=== PATIENT | female | born 1990 | race Caucasian/White ===

== ENCOUNTER → 2018-09-12 23:05 | Outpatient (CLI) | payer OTHER, SELFPAY ==
[2018-09-12 18:15] VITALS: BMI 18.7
[2018-09-12 23:34] LABS: ALB/GLOB Ratio 1.1 RATIO (0.9-2.4); AST(SGOT) 19 U/L (15-37); Alanine Aminotransfer ALT/SGPT 21 U/L (13-56); Albumin, Serum 4.1 g/dL (3.2-5.0); Alkaline Phosphatase 45 U/L (45-117); Anion Gap 6 (5-15); BUN 22 mg/dL (7-18); BUN/Creat Ratio 25.1 RATIO (10-20); Calcium,Total 9.1 mg/dL (8.5-10.1); Chloride 105 mmol/L (98-107); Creatinine, Serum 0.88 mg/dL (0.55-1.02); EST Glomerular Filtration Rate 82 mL/min (>60); Est Glom Filt Rate - Afr Amer 100 mL/min (>60); Globulin 3.7 g/dL (2.2-4.2); Glucose 80 mg/dL (74-106); Potassium 3.6 mmol/L (3.5-5.1); Protein, Total 7.8 g/dL (6.4-8.2); Sodium Level 136 mmol/L (136-145); Thyroid Stim Hormone (TSH) 5.73 uIU/mL (0.358-3.74)
--- OUTSIDE RECORDS SUMMARY | 2018-10-25 17:42 | XMS RPT_ITS ---
:1990 Author Organization [facility] Care Team Providers Name Role Phone Soheila Rubio DRY STARCH SUPERVISOR-C Attending Unavailable Soheila Rubio DRY STARCH SUPERVISOR-C Referring Unavailable PROBLEMS PROBLEMS DATE TYPE CONDITION / CODE ATTENDING STATUS SOURCE 09/13/2018 Unknown G47.00 - Rubio, Active [place] Insomnia, Soheila DRY STARCH SUPERVISOR-C [facility] unspecified / Hospital G47.00(ICD-10) Repository 09/13/2018 Unknown E03.9 - Rubio, Active [place] Hypothyroidism, Soheila DRY STARCH SUPERVISOR-C [facility] unspecified / Hospital E03.9(ICD-10) Repository PROCEDURES PROCEDURES No Procedure Records FoundRESULTS RESULTS OFFICE VISIT Observed: 09/13/2018 Status: F Source: DEANNA 12:29 PM [facility] REPOSITORY [facility] [address] [place] [address] OFFICE VISIT Date of Service: 09/12/18 MR#: [id number] Acct: [id number] Name: MARIVEL PATEL Rep #: [id number] : 1990 Provider: NINA Rubio Age/Sex: 27/F Location: [facility] Status: Signed Intake Vital Signs09/12/18 Height 5 ft 3.4 in 09/12/18 Weight: 107 lb Intake Visit Reasons: RX REFILLS Allergies azithromycin [From Zithromax] Adverse Reaction (Intermediate, Unverified 09/12/18 16:47) vomiting, diarrhea penicillin G [From Bicillin C-R] Adverse Reaction (Intermediate, Unverified 09/12/18 16:47) vomiting, diarrhea penicillin G procaine [From Bicillin C-R] Adverse Reaction (Intermediate, Unverified 09/12/18 16:47) vomiting, diarrhea Medications meloxicam 7.5 mg tablet 7.5 mg PO DAILY #30 tab 09/12/18 [Rx Confirmed 09/12/18] norgestimate 0.25 mg-ethinyl estradiol 35 mcg tablet 1 tab PO DAILY 09/12/18 [History Confirmed 09/12/18] topiramate 50 mg tablet 50 mg PO DAILY #30 tab 09/12/18 [Rx Confirmed 09/12/18] zolpidem 10 mg tablet 10 mg PO QHS PRN #30 tab 09/12/18 [Rx Confirmed 09/12/18] thyroid (pork) 30 mg tablet 30 mg PO DAILY #30 tab 09/13/18 [Rx Confirmed 09/13/18] PFSH Medical History ADD (attention deficit disorder) (Acute) Fibromyalgia (Acute) IBS (irritable bowel syndrome) (Acute) Insomnia (Acute) Migraine (Acute) Narcolepsy (Acute) Family History Other Bone cancer Fibroids High cholesterol Hypertension Hypoglycemia Lung cancer HPI HPI (General) HPI HPI: MARIVEL PATEL, is a 27 F who presents to the office today for medication refills She has stopped her levothyroxine and the leg cramps stopped too . also stopped her K pills . suggested retesting her thyroid and recheck her electrolytes also also still needs her sleeping pills but getting better down to 1/2 pill. ROS Const Constitutional: No anorexia, body ache, chills, excessive sweating, fatigue, fever(s), frequent falls, headache(s), decreased energy, malaise, night sweats, snoring, weakness, weight change, sleep problems, abnormal sleep pattern, change in appetite or other Eyes Eyes: No blurry vision, change in vision, double vision, discharge, dry eyes, bulging eyes, floaters, visual disturbances, eye pain, light sensitivity, spots in vision, tunnel vision or other ENT ENT: No headache(s), abnormal hearing, ear pain, ear discharge, ear pressure, hearing loss, tinnitus, dizziness/vertigo, balance problems, nosebleed/epistaxis, nasal congestion, nasal obstruction, nose pain, sinus pressure, sinus pain, nasal discharge, post nasal drip, facial pain, dental pain, dry mouth, difficulty swallowing, bad breath, hoarseness, lip swelling, mouth lesions, mouth pain, neck pain, sore throat, tongue swelling, throat swelling or other Resp Respiratory: No snoring, cough, change in phlegm color, chest congestion, excessive phlegm production, hemoptysis, pain on inspiration, shortness of breath, pain with cough, stridor, wheezing or other Cardio Cardiology: No excessive sweating, chest pain at rest, chest pain with exertion, leg pain with exertion, shortness of breath, dyspnea on exertion, generalized swelling, irregular heart rhythm, lightheadedness, orthopnea, radiating jaw, neck or arm pain, fast heart rate, slow heart rate, palpitations or other Gastro GI: No other, No Difficulty Swallowing, No abdominal pain, No belching, No bloating, No change in bowel habits, No change in stool character, No coffee ground emesis, No constipation, No cramping, No diarrhea, No heartburn, No feeling full early, No excessive flatus, No incontinent of stools, No Vomiting blood/hematemesis, No Blood in stool, No loose stools, No Black,tarry stools, No nausea/dyspepsia, No pain with swallowing, No vomiting, No hemorrhoids, No rectal pain Genitourinary: No urinary frequency, difficulty urinating, burning urination, painful urination, urinary urgency or blood in urine Musc Musculoskeletal: No neck pain, abnormal walking, joint pain, back pain, deformity, joint swelling, limited range of motion, loss of height, muscle cramps, muscle weakness, decreased muscle mass, body aches, numbness, radiating pain into limb, stiffness, tingling or other Skin Skin: No acne, hair loss, change in hair, nail changes, boil, change in skin color, dry skin, redness, excessive hair growth, yellowing of the skin, lesions, itching, rash, skin pain, skin ulcer, sores, skin swelling, wounds or other Breast Breast: No other Neuro Neurology: No frequent falls, headache(s), weakness, visual disturbances, abnormal hearing, abnormal walking, numbness, tingling, abnormal movements, abnormal speech, behavioral changes, confusion, unsteady gait/balance, dizziness, lack of coordination, loss of vision, memory loss, restless legs, fainting, tremor(s) or other Psych Psychiatric: No abnormal sleep pattern, No change in appetite, No behavioral changes, No confusion, No memory loss, No lack of enjoyment, No anxiety, No depression, No difficulty concentrating, No hopelessness, No irritability, No mood swings, No panic attacks, No paranoia, No Thoughts of harming yourself/Others, No hallucinations, No other Endo Endo: No excessive sweating, No fatigue, No other Aller/Imm Allergy/Immunologic: No lip swelling, tongue swelling, throat swelling, wheezing or itchy eyes Exam Const Constitutional: Yes cooperative, Yes healthy appearing Orientation: Yes alert, awake and oriented x3 HENMT Head: Yes normocephalic Ear: Yes hearing grossly normal bilaterally Neck Neck: normal visual inspection Thyroid: thyroid normal Eyes General: Yes appearance normal, both eyes and all related structures Chest Chest palpation AND inspection: Yes normal inspection of the chest Resp Effort AND Inspection: No stridor Auscultation: Yes clear to auscultation bilaterally Cardio Palpitation: Yes normal PMI Rate: Yes regular rate Rhythm: Yes regular rhythm GI Inspection: Yes normal to inspection Auscultation: Yes normal bowel sounds Rectal Exam: No hemorrhoids Musc Cervical Spine: Yes cervical ROM normal Thoracic/Lumbar Spine: Yes thoracic and lumbar spine normal to inspection Skin General: no rashes or lesions noted Lesions: Yes no lesions Extrem General: Yes normal to inspection Neuro General: Yes alert and oriented x3 Motor: No weakness Psych Appearance: Positive grossly normal Mood: Positive congruent mood Affect: Positive normal affect Assessment AND Plan Problems 1. Primary insomnia F51.01 2. Acquired hypothyroidism E03.9 Patient Instructions Will recheck labs and thyroid Will call with the results follow up as needed suggested trying [place] instead of the levothyroxine for less side effects Orders Orders: Medications New: Discontinued: potassium chloride ER (K-Tab) Discontinued Reason: Pt no longer takin10 mEq PO DAILY g Coding Level of Care Code Off vis,est,level 3 Diagnoses Primary insomnia F51.01 Insomnia type: primary Acquired hypothyroidism E03.9 Hypothyroidism type: acquired 09/13/18 1229 <Electronically signed by Soheila SALDANA> Date Soheila SALDANA CC: COMPREHENSIVE METABOLIC Collected: 09/12/2018 Status: F Source: DEANNA NETTLES 7:05 PM [facility] REPOSITORY TYPE CODE TESTS RESULT OUT OF RANGE REFERENCE UNITS LAB L501.0100 74-106 mg/dL Normal GLU 80 Result Comment: Please note revised GLUCOSE reference range effective 2017. LAB L501.1000 7-18 mg/dL High BUN 22 LAB L501.1100 0.55-1.02 mg/dL Normal CREAT,SERUM 0.88 Result Comment: The validity of the calculated GFR AND GFRAA in patients over 70 years has not been determined. Clinical correlation is essential. LAB L501.1110 >60 mL/min Normal EST GFR 82 Result Comment: Non- GFR Calc LAB L501.1115 >60 mL/min Normal EST GFR - AA 100 Result Comment: GFR Calc LAB L501.1300 10-20 RATIO High BUN/CRE 25.1 LAB L501.1500 6.4-8.2 g/dL T Normal PROT 7.8 LAB L501.1800 3.2-5.0 g/dL Normal ALB 4.1 LAB L501.1950 2.2-4.2 g/dL Normal GLOB 3.7 LAB L501.2000 0.9-2.4 RATIO Normal A/G 1.1 LAB L501.2200 8.5-10.1 mg/dL CA Normal 9.1 LAB L501.4100 15-37 U/L Normal AST 19 LAB L501.4305 45-117 U/L Normal ALK P 45 LAB L501.4405 13-56 U/L Normal ALT 21 LAB L501.4600 0.20-1.00 mg/dL T Normal BILI 0.20 LAB L501.5300 136-145 mmol/L NA Normal 136 LAB L501.5600 3.5-5.1 mmol/L K Normal 3.6 LAB L501.5900 98-107 mmol/L CL Normal 105 LAB L501.6100 21.0-32.0 mmol/L Normal CO2 25.0 LAB L501.6200 5-15 Normal GAP 6 Performed By: #### L500.4050, L501.9520 #### [facility] [address] [place], [place], [address] THYROID STIM HORMONE Collected: 09/12/2018 Status: F Source: DEANNA (TSH) 7:05 PM [facility] REPOSITORY TYPE CODE TESTS RESULT OUT OF RANGE REFERENCE UNITS LAB L501.9520 0.358-3.74 uIU/mL High TSH 5.73 Performed By: #### L500.4050, L501.9520 #### [facility] [address] [place], [address] ALLERGIES ALLERGIES DATE TYPE / CODE NAME / CODE REACTION SEVERITY SOURCE 09/12/2018 Drug penicillin G vomiting, [place] Allergy/416 procaine/[id number] diarrhea Community [address]17[facility] [address] Rep[facility] 09/12/2018 Drug azithromycin/F006 vomiting, MO [place]anna Allergy/416 911436(RXNORM) diarrhea Community 155609([facility] ED CT) Repository 09/12/2018 Drug penicillin vomiting, [place]anna Allergy/416 G/[id number](RXNO diarrhea Community 608116([facility] ED CT) Repository ENCOUNTERS ENCOUNTERS ADMIT/DISCHARGE ACCOUNT ADMITTING ENCOUNTER LOCATION SOURCE NUMBER CLASS 09/12/2018 [id number] Ambulatory [address] ing:LABSPEC Repository PAYERS PAYERS ENCOUNTER GUARANTOR PAYER SUBSCRIBER SOURCE 09/12/2018 MARIVEL Primary MARIVEL [id number] Insurance:MEDICAL BAILEYDOB: [facility] [id number] Number: Repository [id number]: [phone] [id number] [phone] () Date:[id number] [address]VW: 09/12/2018 Secondary NOT GIVENFIGUEROA Banda Insurance:SELF PAY [facility] Number: Effective Repository Date:2018-09-12
== END ==
PROVIDERS: Referring Provider Nurse Practitioner; Visit Provider Nurse Practitioner
DX: G47.00 Insomnia, unspecified (principal); E03.9 Hypothyroidism, unspecified
CPT/HCPCS: 80053; 84443

== ENCOUNTER → 2018-11-07 23:50 | Outpatient (CLI) | payer OTHER, SELFPAY ==
[2018-09-12 18:15] VITALS: BMI 18.7
[2018-11-08 00:48] LABS: Thyroid Stim Hormone (TSH) 1.63 uIU/mL (0.358-3.74)
--- OUTSIDE RECORDS SUMMARY | 2019-01-10 05:49 | XMS RPT_ITS ---
:1990 Author Organization OHIP Care Team Providers Name Role Phone Soheila Rubio PREFORMING MACHINE OPERATOR-C Attending Unavailable Soheila Rubio PREFORMING MACHINE OPERATOR-C Referring Unavailable Soheila Rubio PREFORMING MACHINE OPERATOR-C Attending Unavailable Soheila Rubio PREFORMING MACHINE OPERATOR-C Referring Unavailable PROBLEMS PROBLEMS DATE TYPE CONDITION / CODE ATTENDING STATUS SOURCE 11/08/2018 Unknown E03.9 - Rubio, Active [place] Hypothyroidism, Soheila PREFORMING MACHINE OPERATOR-C Community unspecified / Hospital E03.9(ICD-10) Repository 09/13/2018 Unknown G47.00 - Rubio, Active [place] Insomnia, Soheila PREFORMING MACHINE OPERATOR-C Community unspecified / Hospital G47.00(ICD-10) Repository PROCEDURES PROCEDURES No Procedure Records FoundRESULTS RESULTS OFFICE VISIT Observed: 11/07/2018 Status: F Source: DEANNA 8:32 PM [facility] REPOSITORY [facility] [address] [place] [address] OFFICE VISIT Date of Service: 11/07/18 MR#: [id number] Acct: [id number] Name: MARIVEL PATEL Rep #: [id number] : 1990 Provider: NINA Rubio Age/Sex: 28/F Location: [facility] Status: Signed Intake Intake Visit Reasons: TSH Allergies azithromycin [From Zithromax] Adverse Reaction (Intermediate, [...] (General) HPI HPI: MARIVEL PATEL, is a 28 F who presents to the office today for Assessment AND Plan Orders Orders: Coding Level of Care Code No Charge 11/07/182031 <Electronically signed by Soheila SALDANA> Date Soheila SALDANA CC: THYROID STIM HORMONE Collected: 11/07/2018 Status: F Source: DEANNA (TSH) 6:30 PM [facility] REPOSITORY TYPE CODE TESTS RESULT OUT OF RANGE REFERENCE UNITS LAB L501.9520 0.358-3.74 uIU/mL Normal TSH 1.63 Performed By: #### L501.9520 #### [place] [facility] [place] [place] [facility] [address] [place], [address] OFFICE VISIT Observed: 09/13/2018 Status: F Source: DEANNA 12:29 PM [facility] REPOSITORY [facility] [address] [place] [address] OFFICE VISIT Date of Service: 09/12/18 MR#: [id number] Acct: [id number] Name: MARIVEL PATEL Rep #: [id number] : 1990 Provider: NINA Rubio Age/Sex: 27/F Location: [facility] Status: Signed Intake Vital Signs09/12/18 Height 5 [...] results follow up as needed suggested trying [place] instead of the levothyroxine for less side [...] Status: F Source: DEANNA NETTLES 7:05 PM [facility] REPOSITORY TYPE CODE TESTS RESULT OUT OF [...] 6 Performed By: #### L500.4050, L501.9520 #### [facility] [address] [place], [address] THYROID STIM HORMONE Collected: 09/12/2018 Status: F Source: DEANNA (TSH) 7:05 PM [facility] REPOSITORY TYPE CODE TESTS RESULT OUT OF RANGE REFERENCE UNITS LAB L501.9520 0.358-3.74 uIU/mL High TSH 5.73 Performed By: #### L500.4050, L501.9520 #### [facility] [address] [facility] [place] [place], [address] ALLERGIES ALLERGIES DATE TYPE / CODE NAME / CODE REACTION SEVERITY SOURCE 09/12/2018 Drug penicillin G vomiting, [place] Allergy/416 procaine/[id number] diarrhea Community 408918([place] [address](RXNORM) [facility] ED CT) Repository 09/12/2018 Drug azithromycin/F006 vomiting, MO [place] Allergy/416 964267(RXNORM) diarrhea Community 410315([facility] ED CT) Repository 09/12/2018 Drug penicillin vomiting, MO [place] Allergy/416 G/[id number](RXNO diarrhea Community 739531([facility] ED CT) Repository ENCOUNTERS ENCOUNTERS ADMIT/DISCHARGE ACCOUNT ADMITTING ENCOUNTER LOCATION SOURCE NUMBER CLASS 11/07/2018 [id number] Ambulatory [facility] ing:LABSPEC Repository 09/12/2018 [id number] Ambulatory [facility] 7 [facility] ing:LABSPEC Repository PAYERS PAYERS ENCOUNTER GUARANTOR PAYER SUBSCRIBER SOURCE 11/07/2018 MARIVEL Arndt Primary MARIVEL Hair Deanna [id number] Insurance:MEDICAL BAILEYDOB: [facility] [id number] Number: Repository [id number]: [phone] [id number] [phone] () Date:[id number] [address] [place], [place] [address]WP: 11/07/2018 Secondary NOT GIVENUNK Deanna Insurance:SELF PAY [facility] Number: Effective Repository Date:2018-11-07 09/12/2018 MARIVEL Primary MARIVEL Banda [id number] Insurance:MEDICAL BAIERINDOB: [facility] [id number] Number: Repository [id number]: [phone] [id number] [phone] () Date:9690-99-04RL [address], [place] [address]SW: 09/12/2018 Secondary NOT GIVENUNK [place] Insurance:SELF PAY [facility] Number: Effective Repository Date:2018-09-12
== END ==
PROVIDERS: Referring Provider Nurse Practitioner; Visit Provider Nurse Practitioner
DX: E03.9 Hypothyroidism, unspecified (principal)
CPT/HCPCS: 84443

== ENCOUNTER → 2019-12-04 21:42 | Outpatient (CLI) | payer OTHER, SELFPAY ==
[2019-12-04 19:00] VITALS: BMI 18.8
[2019-12-04 22:11] LABS: Thyroid Stim Hormone (TSH) 2.66 uIU/mL (0.358-3.74)
== END ==
PROVIDERS: Referring Provider Nurse Practitioner; Visit Provider Nurse Practitioner
DX: E03.9 Hypothyroidism, unspecified (principal)
CPT/HCPCS: 84443